=== PATIENT | male | born 1945 | race Caucasian/White ===

== ENCOUNTER 2016-06-17 16:50 | Inpatient (IN) ==
[2016-06-17] MEDS ORDERED: ONDANSETRON 4 MG/2 ML VIAL IV STA (18:17)
[2016-06-17] MEDS ORDERED: HYDROmorphone 2 MG/1 ML VIAL IV STA (18:20)
[2016-06-17] MEDS ORDERED: ONDANSETRON 4 MG/2 ML VIAL ONE (18:23)
[2016-06-17] MEDS ORDERED: HYDROmorphone 2 MG/1 ML VIAL ONE (18:24)
[2016-06-17 18:46] LABS: Basophils % 0.2 % (0.0-0.8); Eosinophils # 0.1 10*3/uL (0.0-0.87); Eosinophils % 0.9 % (0.00-10.9); Hematocrit 38.3 VOL% (42.0-52.0); Hemoglobin 13.1 GM/DL (14.0-18.0); Immature Granulocytes % 0.6 %; Immature Granulocytes Absolute 0.08 #; Lymphocytes # 1.4 10*3/uL (1.4-4.0); Lymphocytes % 10.6 % (21.2-54.2); Mean Corpuscular HGB Conc 34.2 GM/DL (32-36); Mean Corpuscular Hemoglobin 31 PG (27-34); Mean Corpuscular Volume 91.4 FL (87-102); Mean Platelet Volume 10.3 FL (9.6-12.0); Monocytes # 1.2 10*3/uL (0.11-0.8); Monocytes % 9.5 % (1.7-12.7); Neutrophils % 78.2 % (38.7-73.9); Platelet Count 188 T/CUMM (130-400); Red Blood Count 4.19 MC/CUMM (3.8-5.5); Red Cell Distribution Width 12.2 % (9.3-17.3); White Blood Count 12.8 T/CUMM (4-12)
[2016-06-17 18:56] LABS: Calcium 8.3 MG/DL (8.5-10.1); Osmolality,Calculated 284.5 MOS/KG (273-304); Potassium 4.1 MMOL/L (3.5-5.1)
[2016-06-17 20:10] LABS: Apearance,Urine CLEAR (Clear); Bilirubin,Urine Negative (Negative); Blood, Urine Negative (Negative); Glucose,Urine (UA) 150 mg/dL (Negative); Ketones,Urine 20 mg/dL (Negative); Mucus,Urine Occasional /LPF (Occasional); Nitrite,Urine Negative (Negative); Protein,Urine Negative; Urine Color Yellow (Yellow); Urine Specific Gravity 1.011 (1.001-1.035); Urine Urobilinogen < 2.0 EU/DL (0.2-1.0); WBC,Urine 1 /HPF (0-6)
--- NOTE | 2016-06-17 21:19 | Hospitalist History & Physical ---
Assessment and Plan (1) Left flank pain Status: Acute Assessment and plan: Patient will be given Dilaudid 2 mg IV every 4 hours as needed. Watch blood pressure closely. Will be on D5 normal saline drip at 75 mL/h. Patient will be n.p.o. from midnight give him clear liquids for now Current Visit: Yes (2) Renal calculus, left Status: Acute Assessment and plan: Treatment of pain will be as mentioned above. Patient will be consulted for urology physician educational resource center teacher is alert and interactive by the emergency room. The floor will call the physician in the morning to remind him Current Visit: No (3) Accelerated hypertension Status: Acute Assessment and plan: Give patient pain medication of his blood pressure does not come down he will be started on calcium channel rosanne most likely amlodipine 5 mg daily. Current Visit: Yes (4) Allergic to aspirin Status: Acute Assessment and plan: We see these severe reaction of anaphylaxis and history patient should avoid all nonsteroidal anti-inflammatory medications. I did explain it to the family the to daughters and the patient while I was seeing him in the emergency room. Medication like ibuprofen Aleve should be avoided Time for patient assessment chart review and decision-making was 40 minutes. Current Visit: Yes History of Present Illness Chief complaint: Left flank pain History of present illness: Mr. Jimenez is a 70 year old male who presents to the ED for further evaluation of left sided flank pain which started 3 days ago. He states he was seen 2 times in [place] and once here this morning for the same Sx. Pt reports he was told he had a 7 MM kidney stone in the left kidney and was written an RX for Dilaudid and Percocet. He states he has a medical hx of kidney stones. Pt denies any diarrhea or JOHNS. Pt has no other complaints. Denies fevers but states that when the pain hits him he gets a chill. Pt has a PMHx of Kidney stones. Pt denies a surgical Hx. Pt has a family medical Hx of diabetes and HTN. Pt denies a social Hx. The emergency room had called urology before calling me. Because of blood pressures high the patient needs pain medication urology has deferred admission to medicine. There will be consulted for surgical intervention. According to the patient, the patient blood pressure goes up when the pain amplitude goes up. Home Medications Medication Instructions Recorded Confirmed Type Ciprofloxacin [Ciprofloxacin Susp] 500 mg PO BID 06/17/16 06/17/16 History Hydromorphone HCl [Dilaudid] 2 mg PO Q4H PRN 06/17/16 06/17/16 History Ondansetron Tab [Zofran Tab] 4 mg PO Q4H PRN 06/17/16 06/17/16 History Tamsulosin [Flomax] 0.4 mg PO DAILY 06/17/16 06/17/16 History Allergies Allergy/AdvReac Type Severity Reaction Status Date / Time aspirin Allergy SHORTNESS Verified 06/17/16 03:54 OF BREATH Medical,Surgical,& Family Hx - Medical History Medical History: noncontributory (However the patient himself told me that he does not have any other medical problem though it was reported on. Note that he has had kidney stones in the past. There is no diagnoses that could predispose him to kidney stones that are known.) Genitourinary: History of: Kidney Stones - Social History Smoking Status: Never smoker - Constitutional Constitutional: Present: as per HPI, other (This patient also has a very bad anaphylactic reactions to aspirin) - Cardiovascular Cardiovascular: Present: as per HPI, other (Noted high blood pressures in the monitor) - Genitourinary Genitourinary: Present: other (Kidney stones patient denies any migel hematuria denies any associated fevers and chills patient has exquisite pain in the left flank radiating into his groin and scrotum) - Neurological Neurological: Present: other (None) - Psychiatric Psychiatric: Present: other (None) Exam - Constitutional Vitals: Period Temp Pulse Resp BP Sys/Hooks Pulse Ox Last 24 Hr 98.4 F 75-89 18-20 172-213/78-88 94-100 General appearance: over weight - Head Head exam: Present: normocephalic, atraumatic - Eye Eye exam: Present: EOMI, other (Anicteric sclera no conjunctival petechiae) Pupils: Present: VISHAL - ENT ENT exam: Present: normal oropharynx - Neck Neck exam: Present: normal inspection - Respiratory Respiratory exam: Present: clear to auscultation bilaterally - Cardiovascular Cardiovascular exam: Present: other (Noted high blood pressure on the monitor as the patient is having pain not on any medications at home claims that his blood pressures have been just fine) - GI/Abdominal GI/Abdominal exam: Present: other (Left flank tenderness to palpation) - Extremities Exam Extremities exam: Present: normal inspection, full ROM, other (No edema no cyanosis) - Back Exam Back exam: Present: normal inspection, CVA tenderness (L) - Neurological Exam Neurological exam: Present: alert, oriented X3, CN II-XII intact - Psychiatric Psychiatric exam: Present: normal affect, normal mood - Skin Skin exam: Present: normal color, warm, dry Results - Labs CBC & BMP: 06/17/16 18:20 06/17/16 18:20 Lab Results: I have reviewed the past 24 hour labs
[2016-06-17] MEDS ORDERED: DEXTROSE 5% NACL 0.9% 1,000 ML IV SCH (21:30)
[2016-06-17] MEDS ORDERED: ONDANSETRON 4 MG/2 ML VIAL IM SCH (22:00)
[2016-06-17] MEDS ORDERED: HYDROmorphone 2 MG/1 ML VIAL IM SCH (22:00)
[2016-06-17] MEDS: HYDROmorphone 2 MG/1 ML VIAL IV SCH (23:13)
[2016-06-17] MEDS: ONDANSETRON 4 MG/2 ML VIAL IV SCH (23:14)
--- NOTE | 2016-06-17 23:56 | Emergency Department Note ---
Earl Lara Brittany, am scribing for, and in the presence of, Marquise Olson MD 18:24. IWesley William S., MD, personally performed the services described in this documentation, ascribed by Rimma Elliott in my presence, and it is both accurate and complete [id number] . Arrival - Arrival Chief Complaint: Abdominal / Flank Pain Stated Complaint: KIDNEY STONES ED Nursing Triage Note: left flank pain that started three days ago. reports is using dilaudid at home without relief. was seen here at 0400 this morning and given percocet but has not gotten them filled. Mode of Arrival: Wheelchair Limitations: No Limitations Source: Patient, Family - History of Present Illness HPI Narrative: This is a 70 y/o white male,who presents to the ED for further evaluation of left sided flank pain which started 3 days ago. He states he was seen 2 times in [place] and once here this morning for the same Sx. Pt reports he was told he had a 7 MM kidney stone in the left kidney and was written an RX for Dilaudid and Percocet. He states he has a medical hx of kidney stones. Pt denies any diarrhea or JOHNS. Pt has no other complaints/pain in the ED at this time. Pt has a PMHx of Kidney stones. Pt denies a surgical Hx. Pt has a family medical Hx of diabetes and HTN. Pt denies a social Hx. Onset (ago): day(s) (Started 3 days ago) Consistency: constant Severity: moderate Allergies/Adverse Reactions: Allergies Allergy/AdvReac Type Severity Reaction Status Date / Time aspirin Allergy SHORTNESS Verified 06/17/16 03:54 OF BREATH Home Medications: Home Medications Medication Instructions Recorded Confirmed Type Ciprofloxacin [Ciprofloxacin Susp] 500 mg PO BID 06/17/16 06/17/16 History Hydromorphone HCl [Dilaudid] 2 mg PO Q4H PRN 06/17/16 06/17/16 History Ondansetron Tab [Zofran Tab] 4 mg PO Q4H PRN 06/17/16 06/17/16 History Tamsulosin [Flomax] 0.4 mg PO DAILY 06/17/16 06/17/16 History Review of System - Review of System 12 point system: reviewed and no additional remarkable complaints except as stated - Review of System Gastrointestinal: Present: abdominal pain (Left flank tenderness). Absent: diarrhea Neurological: Absent: headache Medical,Surgical,& Family Hx - Medical History Genitourinary: History of: Kidney Stones - Family History Family History: Reports;: Family Diabetes, Family Hypertension - Social History Smoking Status: Never smoker Exam Vital Signs: Vital Signs Temperature 98.6 F 06/17/16 22:29 Pulse Rate 84 06/17/16 22:29 Respiratory Rate 20 06/17/16 22:29 Blood Pressure 219/93 06/17/16 22:29 O2 Sat by Pulse Oximetry 94 L 06/17/16 22:29 - General General appearance: alert, in no apparent distress - Head Head exam: Present: atraumatic, normocephalic, normal inspection - Eye Eye exam: Present: normal appearance, PERRL, EOMI. Absent: nystagmus, miosis, mydriasis - ENT ENT exam: Present: normal exam, normal oropharynx, mucous membranes moist - Neck Neck exam: Present: normal inspection, full ROM, trachea midline. Absent: tenderness, meningismus, lymphadenopathy, thyromegaly - Chest Chest inspection: Present: normal inspection, symmetric chest wall rise. Absent : tenderness, rash, abscess - Respiratory Respiratory exam: Present: normal lung sounds bilaterally. Absent: rales, respiratory distress, rhonchi, stridor, wheezes - Cardiovascular Cardiovascular exam: Present: regular rate, normal rhythm, normal heart sounds. Absent: murmur, rubs, gallop, clicks, JVD - Abdominal Exam Abdominal exam: Present: soft, tenderness, normal bowel sounds (Left quardant tenderness). Absent: distention, guarding, rebound, rigidity - Rectal Exam Rectal exam: Present: deferred - Extremities Exam Extremities exam: Present: normal inspection, full ROM, normal capillary refill. Absent: tenderness, pedal edema, joint swelling, calf tenderness - Back Exam Back exam: Present: CVA tenderness (L). Absent: tenderness, muscle spasm, rashes - Neurological Exam Neurological exam: Present: alert, oriented X3, CN II-XII intact. Absent: motor sensory deficit - Psychiatric Psychiatric exam: Present: normal affect, normal mood. Absent: depressed, agitated, anxious, flat affect, manic - Skin Skin exam: Present: warm, dry, intact, normal color. Absent: rash, cyanosis, diaphoresis, erythema, pallor, mottled Course Course Narrative: Patient given pain medicine for control of significant high obstructing renal stone pain. CT is loaded into the system and the radiology staff obtains report of the CT from the prior facility which did show 5.5 mm stone at the level of the L4 superior endplate with obstructive changes proximal to the location of the stone. Patient's pain was improved with 2 mg of Dilaudid which then had to be repeated. Given this was the patient's fourth visit for the same problem urology radiation protection specialist is contacted. They would like to have the patient admitted to medicine with urology consultation so the stent may be placed. Patient is agreeable hospitalist is contacted and the patient is admitted Results - Labs CBC & BMP: 06/17/16 18:20 06/17/16 18:20 Lab Results: I have reviewed the patients labs Labs: Laboratory Tests 06/17/16 06/17/16 06/17/16 18:20 18:20 20:00 WBC 12.8 H RBC 4.19 Hgb 13.1 L Hct 38.3 L MCV 91.4 MCH 31 MCHC 34.2 RDW 12.2 Plt Count 188 MPV 10.3 Neut % (Auto) 78.2 H Lymph % (Auto) 10.6 L [place] % (Auto) 9.5 Eos % (Auto) 0.9 Baso % (Auto) 0.2 Neut # (Auto) 10.0 H Lymph # (Auto) 1.4 [place] # (Auto) 1.2 H Eos # (Auto) 0.1 Baso # (Auto) 0.0 Immature Gran % 0.6 Nucleated RBC % 0.0 Immature Gran # 0.08 Nucleated RBCs # 0.00 Sodium 139 Potassium 4.1 Chloride 104 Carbon Dioxide 28 Anion Gap 11.1 BUN 19 H Creatinine 1.70 H GFR Calculation 50 BUN/Creatinine Ratio 11.00 Glucose 207 H Calculated Osmolality 284.5 Calcium 8.3 L Urine Color Yellow Urine Appearance Clear Urine pH 5.0 Ur Specific [place] 1.011 Urine Protein Negative Urine Glucose (UA) 150 Urine Ketones 20 Urine Blood Negative Urine Nitrate Negative Urine Bilirubin Negative Urine Urobilinogen < 2.0 H Urine Leukocytes Negative Urine WBC 1 Urine Mucus Occasional Ur Culture Indicated? Not indicated Disposition Clinical Impression: Calculus of kidney, Intractable pain, Ureterolithiasis, Hydronephrosis concurrent with and due to ureteral stricture, Renal calculus, left, Left flank pain Case discussed with: patient, patient's family Disposition: Still a Patient Condition: Stable
[2016-06-18] MEDS: HYDROmorphone 2 MG/1 ML VIAL IV SCH ×3 (03:31→11:47)
[2016-06-18] MEDS: ONDANSETRON 4 MG/2 ML VIAL IV SCH ×3 (03:31→11:48)
[2016-06-18] MEDS ORDERED: amLODIPine 2.5 MG TABLET PO SCH (09:00)
--- NOTE | 2016-06-18 11:28 | Discharge Summary ---
Hospital Course - Hospital Course Hospital Course: Mr. Jimenez was admitted for evaluation of kidney stones. Patient was seen by urology who decided to see the patient in clinic for management of this issue. Patient will be discharged with amlodipine for blood pressure control. By discharge patient had met maximum benefit of hospitalization. I spent 32 minutes coordinating this discharge. - Time spent with patient Time with patient DS: Greater than 30 minutes Discharge Plan - Discharge Data Disposition: Disch To Home/Self Care Condition at Discharge: Stable Discharge Diet: advance to your usual diet Activity: resume usual activities as tolerated - Discharge Medications New amLODIPine [Norvasc] 5 mg PO DAILY #30 tablet Continue Tamsulosin [Flomax] 0.4 mg PO DAILY Hydromorphone HCl [Dilaudid] 2 mg PO Q4H PRN PRN Reason: Pain Ciprofloxacin [Ciprofloxacin Susp] 500 mg PO BID Ondansetron Tab [Zofran Tab] 4 mg PO Q4H PRN PRN Reason: Nausea - Follow Up or Referral - Forms/Instructions Exam - Constitutional Vitals: Period Temp Pulse Resp BP Sys/Hooks Pulse Ox Last 24 Hr 98.6 F-99.8 F 84-89 18-20 151-219/67-93 94-97 DS: Provider Date of admission: 06/17/16 21:01 Primary care physician: Andrew Diaz DO Attending physician on admission: Natanael Andrew MD Consults: 06/17/16 21:27 Consult to Physician [CONS] Routine Comment: On-call physician; 7mm lt kidney stone Consulting Provider: Paul Rahman Consult to Specialist Group: Urology When should Consulting Provider be notified: In am Person Notified: [place] Date Notified: 06/18/16 Time Notified: 08:05 06/17/16 22:37 Consult to Dietitian [CONS] Routine Reason for Dietitian: Dietary Consult Discharging clinician: Anne Manzanares MD Expected date of discharge: 06/18/16
[2016-06-18 14:39] VITALS: BP 186/83
== END 2016-06-18 12:10 | disposition home or self-care (01) | DRG 692 ==
LOC: N.ED 16:50 → N.EDINP 21:01 → N.2E 22:07
PROVIDERS: ADMIT Internal Medicine Infectious Disease; ATTEND Internal Medicine Infectious Disease